=== PATIENT | female | born 1970 | race Caucasian/White ===

== ENCOUNTER 2018-11-18 15:04 | Emergency (ER) | payer MEDICAID ==
[~2018-11-18] VITALS: Ht 157.5 cm; Wt 53.5 kg
[2018-11-18 15:08] VITALS: BP 172/80
--- NOTE | 2018-11-18 15:19 | NUR ---
PT AMB TO BED 5. NOTIFIED RN .
--- NOTE | 2018-11-18 15:20 | NUR ---
Note undone in EDM - 11/18/18 at 1544 by TYRONE BIB SON C/O HAD SLIGHTLY DIFFICULT BREATHING, FELT LORNA HANDS ERYTHEMA & ITCHY, AND HEADACHE DUE TO EATING SHRIMPS & PEACHES 30 MINS APART AROUND 1030 TODAY. NO ERYTHEMA, RASH, OR HIVES NOTICED ON PT'S HANDS AND BODY AT THIS TIME. PT STATES FEELING MUCH BETTER AND NO SOB. PATIENT STATES SLIGHT HEADACHE OF 2/10 AT THIS TIME; VSS; PATIENT POSITIONED FOR COMFORT; HOB ELEVATED; BEDRAILS UP X1; BED DOWN. ER MD MADE AWARE OF PT STATUS.
--- NOTE | 2018-11-18 15:20 | NUR ---
BIB SON C/O HAD SLIGHTLY DIFFICULT BREATHING, FELT LORNA HANDS ERYTHEMA & ITCHY, AND HEADACHE DUE TO EATING SHRIMPS & PEACHES 30 MINS APART AROUND 1030 TODAY. NO ERYTHEMA, RASH, OR HIVES NOTICED ON PT'S HANDS AND BODY AT THIS TIME. PT STATES FEELING MUCH BETTER AND NO SOB. PATIENT STATES SLIGHT HEADACHE OF 5/10 AT THIS TIME; VSS; PATIENT POSITIONED FOR COMFORT; HOB ELEVATED; BEDRAILS UP X1; BED DOWN. ER MD MADE AWARE OF PT STATUS.
[2018-11-18] MEDS ORDERED: FAMOTIDINE 20 MG TAB PO ONE (15:30)
[2018-11-18] MEDS ORDERED: LORATADINE 10 MG TAB PO ONE (15:30)
[2018-11-18 15:53] VITALS: BP 144/90
--- NOTE | 2018-11-18 15:53 | NUR ---
Patient discharged with v/s stable. Written and verbal after care instructions given and explained. Patient alert, oriented and verbalized understanding of instructions. Ambulatory with steady gait. All questions addressed prior to discharge. ID band removed. Patient advised to follow up with PMD. Rx of Claritin and Pepcid given. Patient educated on indication of medication including possible reaction and side effects. Opportunity to ask questions provided and answered.
== END 2018-11-18 15:53 | disposition home or self-care (01) ==
LOC: MED 15:04
DX: T78.40XA Allergy, unspecified, initial encounter (principal); Z98.890 Other specified postprocedural states; X58.XXXA Exposure to other specified factors, initial encounter
CPT/HCPCS: 99283

== ENCOUNTER 2022-08-31 07:52 | Day surgery (SDC) | payer OTHER ==
[~2022-08-31] VITALS: Ht 160 cm; Wt 57.6 kg
[2022-08-31] MEDS ORDERED: MIDAZOLAM 2 MG/2 ML VIAL ONE (09:07)
[2022-08-31] MEDS ORDERED: LIDOCAINE 2% 100 MG/5 ML UJET TP ONE (09:07)
[2022-08-31] MEDS ORDERED: fentaNYL citrate 0.05 MG/ML VIAL ONE (09:07)
[2022-08-31] MEDS ORDERED: fentaNYL citrate 0.05 MG/ML VIAL IVP ONE (10:30)
== END 2022-08-31 11:00 | disposition home or self-care (01) ==
LOC: MDS 07:52 → MMU 07:53 → MDS 11:00
PROVIDERS: ATTEND Internal Medicine Gastroenterology
DX: Z12.11 Encounter for screening for malignant neoplasm of colon (principal); D12.2 Benign neoplasm of ascending colon; D12.5 Benign neoplasm of sigmoid colon; F41.9 Anxiety disorder, unspecified; K21.9 Gastro-esophageal reflux disease without esophagitis; M19.90 Unspecified osteoarthritis, unspecified site; Z96.641 Presence of right artificial hip joint
CPT/HCPCS: 45385; J3010; J2250